=== PATIENT | male | born 1940 | race Caucasian/White ===

== ENCOUNTER 2019-06-19 11:01 | Day surgery (SDC) | payer OTHER ==
[2019-06-15 13:10] VITALS: BMI 24.5
[2019-06-19] MEDS: PHENYLEPHRINE 2.5% OPHTH SOLN 15 ML BOTTLE ONE ×4 (11:55→12:10)
[2019-06-19] MEDS: CYCLOPENTOLATE HCL 1% OPHTH SOLN 2 ML BOTTLE ONE ×4 (11:55→12:10)
[2019-06-19] MEDS: KETOROLAC TROMETHAMINE 0.5% EYE DROP 1 DROP DROPS ONE ×4 (11:55→12:10)
[2019-06-19] MEDS: OFLOXACIN 0.3% OPHTHALMIC SOLUTION 5 ML BOTTLE ONE ×4 (11:55→12:10)
[2019-06-19] MEDS: TROPICAMIDE 1% OPHTH SOLN 15 ML BOTTLE ONE ×4 (11:55→12:10)
[2019-06-19] MEDS ORDERED: ACETAMINOPHEN 325 MG TABLET (FP) PO PRN (12:18)
[2019-06-19] MEDS ORDERED: MIDAZOLAM HCL 2 MG/2 ML SINGLE DOSE VIAL ONE (13:30)
[2019-06-19] MEDS ORDERED: BACITRACIN/POLYMYXIN OPH OINT 3.5 GM TUBE ONE (13:34)
[2019-06-19] MEDS ORDERED: TETRACAINE 0.5% OPHTH SOLN 2 ML BOTTLE ONE (13:34)
[2019-06-19] MEDS ORDERED: ACETYLCHOLINE 1:100 INTRA-OCUL 20 MG/2 ML KIT ONE (13:35)
[2019-06-19] MEDS ORDERED: POVIDONE-IODINE 5% OPHTHALMIC PREP 30 ML SOLUTION ONE (13:35)
[2019-06-19] MEDS ORDERED: NEO/POLYMYX B SULF/DEXAMETH OPHTHALMIC 5ML BOTTLE ONE (13:35)
[2019-06-19] MEDS ORDERED: LIDOCAINE HCL/EPINEPHRINE/PF 20 ML VIAL ONE (13:36)
[2019-06-19] MEDS ORDERED: EPINEPHrine/PF 1 MG/1 ML (1:1,000) AMPULE ONE (13:37)
[2019-06-19] MEDS ORDERED: BUPIVACAINE HCL/PF 0.5% (5MG/ML) 10 ML VIAL ONE (13:37)
[2019-06-19] MEDS ORDERED: PROPOFOL 20 ML ONE (13:52)
[2019-06-19] MEDS ORDERED: LIDOCAINE HCL/PF 2% SDV 5ML VIAL ONE (13:53)
[2019-06-19] MEDS ORDERED: LIDOCAINE HCL 2% JELLY 10 ML CARTRIDGE ONE (13:56)
[2019-06-19 15:24] VITALS: BP 140/71; PULSE 56; TEMP 97.9
--- NOTE | 2019-06-19 22:03 | OP ---
DATE OF OPERATION: 06/19/2019 TITLE OF PROCEDURE: Planned extracapsular cataract extraction and phacoemulsification of hypermature nucleus in the left eye with insertion of posterior chamber lens implant. SURGEON: Joe Whaley MD CREDIT COLLECTIONS CLERK: Joe Whaley MD ANESTHESIA: Local with standby. ANESTHESIOLOGIST: SOLANGE Hernandez and then Tiara Alvares MD COMPLICATIONS: None. PREOPERATIVE DIAGNOSIS: Hypermature cataract, left eye. POSTOPERATIVE DIAGNOSIS: Hypermature cataract, left eye. FINDINGS AND PROCEDURE: After successful peribulbar anesthesia was given to the left eye, the patient was prepped and draped in the usual manner to expose the left eye. Lid speculum was inserted after Tegaderm strips were placed and the operating room microscope brought into position over the left eye. A superior fornix-based flap was fashioned for 12 mm using Denny scissors and 0.12 forceps. Hemostasis was achieved with electrocautery. Limbal groove was then fashioned for 3 mm with a crescent blade and dissecting anterior into clear cornea. Then, a 3-mm blade was used to enter the anterior chamber Viscoat. A 360-degree anterior capsulotomy was performed after Shugarcaine had been placed into the eye prior to the instillation of Viscoat to maintain the anterior chamber. Phacoemulsification of the entire nucleus was then done in bimanual technique of this hypermature nucleus in approximately 2-1/2 minutes' time, followed by irrigation and aspiration of all cortical material, leaving intact posterior capsule and a red reflex present. Provisc was injected in the posterior chamber to deepen the posterior capsule. The implant was inspected carefully with the microscope and, found to be free of defects, , or flaws. It was irrigated, and then, it was folded, placed in the Provisc-filled cartridge. The cartridge was placed in the injector, and the implant injected in the eye such that the inferior haptic was in the inferior capsular bar and the superior haptic in the superior capsular bag and then rotated in a horizontal position with the Sinskey hook. The Provisc was aspirated out, replaced with Miochol and Miostat and BSS. The wound was closed with a single interrupted 10 Ethilon suture and tested for leakage, and none was found. The conjunctival Tenon's flap was reapproximated. At this point, the implant was fixated in the capsular bag, centrally located, with a round pupil, intact posterior capsule, and a red reflex present. Topical Betoptic S and Maxitrol ophthalmic suspensions were placed as was bacitracin/polymyxin B ophthalmic ointment. Then, the Tegaderm strips and lid speculum were removed from the eyelids. The lids were closed. A patch and shield were placed on the eye. The patient was then discharged from the operating room to the recovery in good condition, having tolerated the procedure well. At the end, it should be noted that the red reflex was present, and the globe was intact at the end of the procedure. Christiano [id number]
== END 2019-06-19 15:20 | disposition home or self-care (01) ==
LOC: FASU 11:01
PROVIDERS: ATTEND Ophthalmology
PROC: 08RK3JZ Replacement of Left Lens with Synthetic Substitute, Percutaneous Approach (ICD-10-PCS; principal; 2019-06-19 12:30)
DX: H25.22 Age-related cataract, morgagnian type, left eye (principal)